=== PATIENT | male | born 1985 | race Caucasian/White ===

== ENCOUNTER 2017-05-21 18:37 | Emergency (ER) ==
[2017-05-21 18:43] VITALS: BP 136/86; TEMP 98.5; BMI 26.8
[2017-05-21] MEDS ORDERED: ZOFRAN 4 MG/2 ML IVP STA (19:15)
[2017-05-21] MEDS ORDERED: SODIUM CHLORIDE 1,000 ML IV STA (19:15)
[2017-05-21 19:26] LABS: BILIRUBIN,URINE 1+ (NEGATIVE); KETONES,URINE Negative (NEGATIVE); LEUKOCYTE ESTERASE ,URINE Negative (NEGATIVE); NITRITE,URINE Negative (NEGATIVE); PROTEIN,URINE Trace (NEGATIVE); URINE, BLOOD Negative (NEGATIVE)
[2017-05-21 19:28] LABS: BASOPHILS # (AUTO) 0.1 K/uL (0-0.2); BASOPHILS % (AUTO) 0.6 % (0.0-3.0); EOSINOPHILS # (AUTO) 0.1 K/ul (0.0-0.7); EOSINOPHILS % (AUTO) 1.5 % (0.0-7.0); HEMATOCRIT 43.2 % (42.0-52.0); HEMOGLOBIN 16.1 g/dl (14.0-18.0); IMMATURE GRANULOCYTE % (AUTO) 0.1 % (0.0-5.0); LYMPHOCYTES # (AUTO) 3.3 K/uL (0.60-3.4); LYMPHOCYTES % (AUTO) 36.4 (10.0-50.0); MEAN CORPUSCULAR HEMOGLOBIN 30.7 pg (27.0-31.0); MEAN CORPUSCULAR HGB CONC 37.3 (31.8-35.4); MEAN CORPUSCULAR VOLUME 82.4 fl (80.0-94.0); MONOCYTES # (AUTO) 0.8 K/uL (0.4-2.0); MONOCYTES % (AUTO) 8.8 (0-10); NEUTROPHILS # (AUTO) 4.7 K/ul (2.0-6.9); NEUTROPHILS % (AUTO) 52.6; PLATELET COUNT 270 10^3/uL (140-440); RED BLOOD COUNT 5.24 10^6/ul (4.70-6.10); WHITE BLOOD COUNT 8.96 K/ul (4.2-10.2)
[2017-05-21 19:34] LABS: ADD URINE MICROSCOPIC YES; BACTERIA,URINE TRACE (NOT PRESENT)
[2017-05-21 19:38] LABS: FLU INTERNAL QC INTERNAL QC VALID; RAPID FLU A NEGATIVE (NEGATIVE); RAPID FLU B NEGATIVE (NEGATIVE)
--- NOTE | 2017-05-21 19:43 | ED.PDOC ---
General ED Provider: Dr. STEPHANIE ATKINS Chief Complaint: Nausea/Vomiting Stated Complaint: Patient is a 31 year old male who comes to the Er with onset dry heaves on 5 days ago with decreased appetite, chills and today Diarrhea x 4 Denies any Abdominal pain. Time Seen by Physician: 19:05 Mode of Arrival: Walk-In Information Source: Patient Exam Limitations: No limitations Primary Care Provider: CRUZ KRISHNA Nursing and Triage Documentation Reviewed and Agree: Yes GI Complaint Exam - Vomiting/Diarrhea Complaint/Exam Onset/Duration: 5 days Symptoms Are: Still present Episodes of Vomiting over last 24 Hours: 1 (mostly dry heaving ) Episodes of Diarrhea Over Last 24 Hours: 4 Initial Severity: Mild Current Severity: Moderate Character of Vomiting: Reports: Non-bilious Character of Diarrhea: Reports: Watery Aggravating: Reports: Food Alleviating: Reports: None Associated Signs and Symptoms: Reports: Cramping. Denies: Dizziness, Light- headedness, Melena, Hematemesis, Fever, Abdominal pain Non-GI Risk Factors: Reports: None Surgical Obstruction Risk Factors: Reports: None Related Surgical History: Reports: None Abdominal Findings: Present: None Differential Diagnoses: Bowel Obstruction, Gastritis, Viral Gastroenteritis, Pancreatitis, UTI Review of Systems - Review Of Systems Constitutional: Reports: Fever, Malaise, Loss of appetite Eyes: Reports: No symptoms Ears, Nose, Mouth, Throat: Reports: No symptoms Respiratory: Reports: Cough (non productive ) Cardiac: Reports: No symptoms GI: Reports: Diarrhea (4 x today ), Nausea, Vomiting : Reports: No symptoms Musculoskeletal: Reports: No symptoms Skin: Reports: No symptoms Neurological: Reports: Anxiety Endocrine: Reports: No symptoms Hematologic/Lymphatic: Reports: No symptoms All Other Systems: Reviewed and Negative Past Medical History - Past Medical History Previously Healthy: Yes Endocrine: Reports: None Cardiovascular: Reports: None Respiratory: Reports: None Hematological: Reports: None Gastrointestinal: Reports: None Genitourinary: Reports: None Neuro/Psych: Reports: Anxiety, Depression, Bipolar Disorder Musculoskeletal: Reports: None Cancer: Reports: None - Surgical History General Surgical History: Reports: Tonsillectomy - Family History Family History: Reports: Unknown - Social History Smoking Status: Former smoker, Vaping Hx Substance Use: Yes (Marijuana) Alcohol Screening: None Lives: Alone Physical Exam - Physical Exam Appearance: Ill-appearing Ill-appearing: Moderate Pain Distress: Moderate Eyes: NILSON, EOMI, Conjunctiva clear ENT: Nose normal, Oropharynx normal Neck: Supple Respiratory: Airway patent, Breath sounds clear, Breath sounds equal, Respirations nonlabored Cardiovascular: RRR, Pulses normal, No rub, No murmur GI/: Soft, Nontender, No masses Musculoskeletal: Normal strength, ROM intact, No edema, No calf tenderness Skin: Warm, Dry, Normal color Neurological: Sensation intact, Motor intact Psychiatric: Anxious Critical Care Note - Critical Care Note Total Time (mins): 0 Course - Course Hematology/Chemistry: 05/21/17 19:20 05/21/17 19:20 Orders, Labs, Meds: Lab Review 05/21/17 05/21/17 05/21/17 18:50 19:16 19:20 WBC 8.96 RBC 5.24 Hgb 16.1 Hct 43.2 MCV 82.4 MCH 30.7 MCHC 37.3 H RDW Coeff of [place] 11.9 Plt Count 270 Immature Gran % (Auto) 0.1 Neut % (Auto) 52.6 Lymph % (Auto) 36.4 [place] % (Auto) 8.8 Eos % (Auto) 1.5 Baso % (Auto) 0.6 Immature Gran # (Auto) 0.0 Neut # 4.7 Lymph # 3.3 [place] # 0.8 Eos # 0.1 Baso # 0.1 Sodium 140 Potassium 3.3 L Chloride 103 Carbon Dioxide 25 Anion Gap 15.3 BUN 17 Creatinine 0.97 Estimated GFR (MDRD) 90.00 BUN/Creatinine Ratio 17.52 Glucose 93 Calcium 9.6 Total Bilirubin 2.76 H AST 41 H ALT 79 H Alkaline Phosphatase 84 Total Protein 8.0 Albumin 4.1 Globulin 3.9 Albumin/Globulin Ratio 1.05 Amylase 44 Lipase 24 Urine Color Yellow Urine Clarity Clear Urine pH 6.0 Ur Specific [place] >=1.030 Urine Protein Trace Urine Glucose (UA) Negative Urine Ketones Negative Urine Blood Negative Urine Nitrite Negative Urine Bilirubin 1+ Urine Urobilinogen 4.0 Ur Leukocyte Esterase Negative Urine Microscopic RBC 0-2 Ur Squamous Epith Cells Not present Urine Bacteria Trace Urine Mucus 1+ Influenza A (Rapid) Negative Influenza B (Rapid) Negative Orders Category Date Time Status ED IV/MEDIPORT/POWERPORT .ONCE EMERGENCY 05/21/17 19:15 Active AMYLASE Stat LAB 05/21/17 19:20 Completed CBC W/ AUTO DIFF Stat LAB 05/21/17 19:20 Completed COMPREHENSIVE METABOLIC PANEL Stat LAB 05/21/17 19:20 Completed LIPASE Stat LAB 05/21/17 19:20 Completed MOLECULAR GROUP A STREP Stat LAB 05/21/17 19:16 Completed RAPID FLU A/B Stat LAB 05/21/17 19:16 Completed STREP SCREEN Stat LAB 05/21/17 19:16 Completed URINALYSIS C & S IF INDICATED Stat LAB 05/21/17 18:50 Completed 0.9 % Sodium Chloride [Saline Flush] MEDS 05/21/17 19:15 Discontinued 1 syr IVF PRN PRN Ondansetron HCl/Pf [Zofran 4 mg/2 ml] MEDS 05/21/17 19:15 Discontinued 4 mg IVP ONCE STA Sodium Chloride 0.9% [Sodium Chloride] 1,000 ml MEDS 05/21/17 19:15 Discontinued IV BOLUS CHEST, 2 VIEWS PA & LAT Stat RADS 05/21/17 19:16 Completed Medications Discontinued Medications Generic Name Dose Route Start Last Admin Trade Name Freq PRN Reason Stop Dose Admin Sodium Chloride 1,000 mls @ 1,000 mls/hr 05/21/17 19:15 05/21/17 19:28 Sodium Chloride IV 05/21/17 20:14 1,000 mls/hr BOLUS STA Administration Ondansetron HCl 4 mg 05/21/17 19:15 05/21/17 19:29 Zofran 4 Mg/2 Ml IVP 05/21/17 19:16 4 mg ONCE STA Administration Sodium Chloride 1 syr 05/21/17 19:15 05/21/17 19:31 Saline Flush IVF 1 syr PRN PRN Administration To flush IV Vital Signs: Temp Pulse Resp BP Pulse Ox 05/21/17 18:37 98.5 F 78 16 136/86 98 Departure - Departure Time of Disposition: 20:40 Disposition: HOME SELF-CARE Discharge Problem: Viral gastroenteritis Instructions: Gastroenteritis (ED), Dehydration (ED), Acute Nausea and Vomiting (ED) Condition: Fair Pt referred to PMD for follow-up: Yes Additional Instructions: Push fluids Take medications for nausea as needed. Prescriptions: Promethazine HCl [Phenergan Tab] 25 mg PO Q6H PRN #15 tablet PRN Reason: Nausea / Vomiting Allergies/Adverse Reactions: Allergies trazadone Allergy (Severe, Uncoded 05/21/17 18:44) rash and didn't help Home Medications: Ambulatory Orders Aripiprazole [Abilify] 60 mg PO DAILY 05/21/17 Diazepam [Valium] 10 mg PO DIRECTED PRN 05/21/17 Promethazine HCl [Phenergan Tab] 25 mg PO Q6H PRN #15 tablet 05/21/17 Quetiapine Fumarate [Seroquel] 200 mg PO BEDTIME 05/21/17 Disposition Discussed With: Patient, Family
[2017-05-21 19:51] LABS: ALBUMIN 4.1 g/dL (3.4-5.0); ALBUMIN/GLOBULIN RATIO 1.05; ANION GAP 15.3; BILIRUBIN,TOTAL 2.76 mg/dL (0.00-1.20); BUN/CREATININE RATIO 17.52; CALCIUM 9.6 mg/dL (8.2-10.2); CREATININE 0.97 mg/dL (0.60-1.10); POTASSIUM 3.3 mmol/L (3.5-5.1)
--- NOTE | 2017-05-22 03:40 | DI ---
EXAM: Chest, two views, 05/21/2017 HISTORY: Cough COMPARISON: 03/02/2014 FINDINGS / IMPRESSION: Cardiomediastinal countours appear stable. There is no focal pulmonary cons olidation. No pleural effusion or pneumothorax. No acute cardiopulmonary process.
== END 2017-05-21 20:42 | disposition home or self-care (01) ==
LOC: ED 18:37
DX: A08.4 Viral intestinal infection, unspecified (principal)
CPT/HCPCS: 36415; 80053; 81001; 82150; 83690; 85025; 87651; 87804; 87880; 96361; 96374; 99283

== ENCOUNTER 2017-10-28 14:21 | Emergency (ER) ==
[2017-10-28 14:34] VITALS: BP 124/77; TEMP 100.8; BMI 28.4
[2017-10-28] MEDS ORDERED: MOTRIN SUSP PO STA (14:44)
[2017-10-28] MEDS ORDERED: SODIUM CHLORIDE 1,000 ML IV STA (15:36)
[2017-10-28] MEDS ORDERED: ZOFRAN 4 MG/2 ML IVP STA (15:36)
[2017-10-28] MEDS ORDERED: DILAUDID 1 MG/ML SYRINGE IVP STA (15:36)
--- NOTE | 2017-10-28 16:28 | ED.PDOC ---
General ED Provider: Dr. GRACIE LARSEN-ER Chief Complaint: Respiratory Complaint Stated Complaint: hes had cough, body aches and fever Time Seen by Physician: 16:26 Mode of Arrival: Walk-In Information Source: Patient Exam Limitations: No limitations Primary Care Provider: CRUZ KRISHNA Nursing and Triage Documentation Reviewed and Agree: Yes Reviewed sepsis parameters & appropriate labs ordered?: Yes System Inflammatory Response Syndrome: Not Applicable Sepsis Protocol: For patient's 13 years and over: Temp is 96.8 and below OR 101 and greater Pulse >90 BPM Resp >20/minute Acutely Altered Mental Status Are patient's symptoms suggestive of a new infection, such as: -Pneumonia -Skin, Soft Tissue -Endocarditis -UTI -Bone, Joint Infection -Implantable Device -Acute Abdominal Infection -Wound Infection -Meningitis -Blood Stream Catheter Infection -Unknown Respiratory Complaint Exam - Respiratory Complaint/Exam Onset/Duration: 24hrs Symptoms Are: Still present Timing: Constant Initial Severity: Mild Current Severity: Mild Location: Chest Character: Reports: Non-productive cough Aggravating: Reports: URI Alleviating: Reports: None Associated Signs and Symptoms: Reports: Fever, Chills, URI, Nasal congestion, Sore throat, Decreased oral intake. Denies: Rapid breathing, Dyspnea, Chest pain, Pleuritic chest pain, Wheezing, Hemoptysis, Dizziness, Calf pain, Calf swelling, Edema, Hoarseness, Sinus discomfort, Vomiting, Weight loss, Increased thirst, Increased appetite, Increased urination Related History: Denies: Similar episode History of Healthcare-Acquired Pneumonia: No Home Oxygen Use: No Recent Stress Test: No Recent Echo/LV Function: No Current Antibiotic Use: No Current Asthma Medication Use: No Respiratory Distress: None Inadequate Respiratory Effort: No Dysphagia Present: No Stridor Present: No JVD Present: No Accessory Muscle Use: No Retractions: Not Present Diminished Breath Sounds: No Sinus Tenderness: None Grunting Respirations: No [place]ul Respirations: No Differential Diagnoses: URI, Influenza Review of Systems - Review Of Systems Constitutional: Reports: Chills, Fever, Weakness Eyes: Reports: No symptoms Ears, Nose, Mouth, Throat: Reports: Nose discharge Respiratory: Reports: Cough Cardiac: Reports: No symptoms GI: Reports: No symptoms : Reports: No symptoms Musculoskeletal: Reports: No symptoms Skin: Reports: No symptoms Neurological: Reports: No symptoms Endocrine: Reports: No symptoms Hematologic/Lymphatic: Reports: No symptoms All Other Systems: Reviewed and Negative Past Medical History - Past Medical History Previously Healthy: Yes Endocrine: Reports: None Cardiovascular: Reports: None Respiratory: Reports: None Hematological: Reports: None Gastrointestinal: Reports: None Genitourinary: Reports: None Neuro/Psych: Reports: Anxiety, Depression, Bipolar Disorder Musculoskeletal: Reports: None Cancer: Reports: None - Surgical History General Surgical History: Reports: Tonsillectomy - Family History Family History: Reports: Unknown - Social History Smoking Status: Former smoker, Vaping Hx Substance Use: Yes (Marijuana) Alcohol Screening: None Lives: With family Physical Exam - Physical Exam Appearance: Ill-appearing Ill-appearing: Mild Eyes: NILSON, EOMI, Conjunctiva clear ENT: Ears normal, Nose normal, Oropharynx normal Neck: Supple Respiratory: Airway patent, Breath sounds clear, Breath sounds equal, Respirations nonlabored Cardiovascular: RRR, Pulses normal, No rub, No murmur GI/: Soft, Nontender, No masses, Bowel sounds normal, No Organomegaly Musculoskeletal: Normal strength, ROM intact, No edema, No calf tenderness Skin: Warm, Dry, Normal color Neurological: Sensation intact, Motor intact, Reflexes intact, Cranial nerves intact, Alert, Oriented Psychiatric: Affect appropriate, Mood appropriate Interpretation - Radiology Interpretation Radiology Interpretation By: ED Physician Radiology Results: Negative Exam Interpreted: CXR Re-Evaluation - Re-Evaluation Time of Re-Evaluation: 16:29 Status: Improved Vital Signs Stable: Yes Pain Level: 2 Appearance: NAD Lungs: Clear Skin: Warm and Dry Neuro: Alert and Oriented X3 CV: RRR Critical Care Note - Critical Care Note Total Time (mins): 0 Course - Course Hematology/Chemistry: 10/28/17 14:55 10/28/17 14:55 Orders, Labs, Meds: Lab Review 10/28/17 10/28/17 10/28/17 14:30 14:55 14:55 WBC 7.09 RBC 4.81 Hgb 14.7 Hct 40.9 L MCV 85.0 MCH 30.6 MCHC 35.9 H RDW Coeff of [place] 12.1 Plt Count 172 Immature Gran % (Auto) 0.1 Neut % (Auto) 83.4 Lymph % (Auto) 6.1 [place] % (Auto) 9.3 Eos % (Auto) 0.7 Baso % (Auto) 0.4 Immature Gran # (Auto) 0.0 Neut # 5.9 Lymph # 0.4 [place] # 0.7 Eos # 0.1 Baso # 0.0 Sodium 139 Potassium 3.7 Chloride 105 Carbon Dioxide 24 Anion Gap 13.7 BUN 14 Creatinine 1.03 Estimated GFR (MDRD) 84.00 BUN/Creatinine Ratio 13.59 Glucose 105 H Calcium 9.3 Total Bilirubin 1.5 H AST 25 ALT 26 Alkaline Phosphatase 85 Total Protein 7.6 Albumin 4.1 Globulin 3.5 Albumin/Globulin Ratio 1.17 Influenza A (Rapid) Positive by naat H Influenza B (Rapid) Negative by naat Orders Category Date Time Status ED IV/MEDIPORT/POWERPORT .ONCE EMERGENCY 10/28/17 15:36 Active BLOOD CULTURE (ED ONLY) Stat LAB 10/28/17 14:55 Received CBC W/ AUTO DIFF Stat LAB 10/28/17 14:55 Completed COMPREHENSIVE METABOLIC PANEL Stat LAB 10/28/17 14:55 Completed MOLECULAR FLU A/B Stat LAB 10/28/17 14:30 Completed MOLECULAR GROUP A STREP Stat LAB 10/28/17 14:30 Completed 0.9 % Sodium Chloride [Saline Flush] MEDS 10/28/17 15:36 Ordered 1 syr IVF PRN PRN Hydromorphone HCl [Dilaudid 1 mg/ml Syringe] MEDS 10/28/17 15:36 Discontinued 1 mg IVP ONCE STA Ibuprofen Susp [Motrin Susp] MEDS 10/28/17 14:44 Discontinued 800 mg PO ONCE STA Ondansetron HCl/Pf [Zofran 4 mg/2 ml] MEDS 10/28/17 15:36 Discontinued 4 mg IVP ONCE STA Sodium Chloride 0.9% [Sodium Chloride] 1,000 ml MEDS 10/28/17 15:36 Active IV BOLUS CXR [CHEST, 2 VIEWS PA & LAT] Stat RADS 10/28/17 14:44 Taken Medications Generic Name Dose Route Start Last Admin Trade Name Freq PRN Reason Stop Dose Admin Sodium Chloride 1,000 mls @ 1,000 mls/hr 10/28/17 15:36 10/28/17 15:51 Sodium Chloride IV 10/28/17 16:35 1,000 mls/hr BOLUS STA Administration Sodium Chloride 1 syr 10/28/17 15:36 Saline Flush IVF PRN PRN To flush IV Discontinued Medications Generic Name Dose Route Start Last Admin Trade Name Lela PRN Reason Stop Dose Admin Hydromorphone HCl 1 mg 10/28/17 15:36 10/28/17 15:51 Dilaudid 1 Mg/Ml Syringe IVP 10/28/17 15:37 1 mg ONCE STA Administration Ibuprofen 800 mg 10/28/17 14:44 10/28/17 14:57 Motrin Susp PO 10/28/17 14:45 800 mg ONCE STA Administration Ondansetron HCl 4 mg 10/28/17 15:36 10/28/17 15:51 Zofran 4 Mg/2 Ml IVP 10/28/17 15:37 4 mg ONCE STA Administration Vital Signs: Temp Pulse Resp BP Pulse Ox 10/28/17 14:21 100.8 F H 95 H 20 124/77 98 Departure - Departure Time of Disposition: 16:29 Disposition: HOME SELF-CARE Discharge Problem: Influenza A Instructions: Influenza (ED) Condition: Good Pt referred to PMD for follow-up: Yes Additional Instructions: tamiflu 75mg bid x 5days--rest..fluids=--tylenol or motrin for pain---recheck in 72hrs or return sooner if symptoms worsen Allergies/Adverse Reactions: Allergies trazadone Allergy (Severe, Uncoded 10/28/17 14:28) rash and didn't help Home Medications: Ambulatory Orders Aripiprazole [Abilify] 60 mg PO DAILY 05/21/17 Diazepam [Valium] 10 mg PO DIRECTED PRN 05/21/17 Promethazine HCl [Phenergan Tab] 25 mg PO Q6H PRN #15 tablet 05/21/17 Quetiapine Fumarate [Seroquel] 200 mg PO BEDTIME 05/21/17 Disposition Discussed With: Patient
--- NOTE | 2017-10-29 13:23 | DI ---
EXAM: Two-view chest. HISTORY: Cough and fever. COMPARISON: 05/21/2017 FINDINGS: PA and lateral views of the chest. The lungs are clear without consolidation or effusion. The heart size and pulmonary vasculature is normal. There is no pneumothorax. The osseous structu res are normal for age. The aorta is unremarkable. IMPRESSION: No acute pulmonary disease.
== END 2017-10-28 16:42 | disposition home or self-care (01) ==
LOC: ED 14:21
DX: J09.X2 Influenza due to identified novel influenza A virus with other respiratory manifestations (principal)
CPT/HCPCS: 36415; 80053; 85025; 87040; 87502; 87651; 96361; 96374; 96375; 99284

== ENCOUNTER 2018-05-27 11:17 | Emergency (ER) ==
[2018-05-27 11:20] VITALS: BP 137/84; TEMP 97.4; BMI 25.8
--- NOTE | 2018-05-27 11:39 | ED.PDOC ---
General ED Provider: Dr. ARIA RUTHERFORD Chief Complaint: Headache Stated Complaint: headache Time Seen by Physician: 11:20 (seen with ilana at all times ) Mode of Arrival: Walk-In Information Source: Patient Exam Limitations: No limitations Primary Care Provider: CRUZ KRISHNA Nursing and Triage Documentation Reviewed and Agree: Yes Does patient meet sepsis criteria?: Yes If yes, has appropriate treatment been initiated?: No System Inflammatory Response Syndrome: Not Applicable Sepsis Protocol: For patient's 13 years and over: Temp is 96.8 and below OR 101 and greater Pulse >90 BPM Resp >20/minute Acutely Altered Mental Status Are patient's symptoms suggestive of a new infection, such as: -Pneumonia -Skin, Soft Tissue -Endocarditis -UTI -Bone, Joint Infection -Implantable Device -Acute Abdominal Infection -Wound Infection -Meningitis -Blood Stream Catheter Infection -Unknown Neurological Complaint Exam - Headache Complaint/Exam Onset: Gradual Duration: today Symptoms Are: Still present Timing: Constant Episodes Lasting: Hours Worst Headache Ever: No Initial Severity: Moderate Current Severity: Moderate Location: Diffuse Character: Reports: Typical headache, Migraine Aggravating: Reports: None Alleviating: Reports: None Associated Signs and Symptoms: Denies: Dizziness, Seizure, Nausea, Vomiting, Sinus pressure, Fever, Neck pain, Neck stiffness, Decreased LOC, Visual changes Related History: Reports: Similar episode Related Surgical History: Reports: None SAH Risk Factors: Reports: None Meningitis Risk Factors: Reports: None SDH Risk Factors: Reports: Male Temporal Arteritis Risk Factors: Reports: None Normal Head CT Within Last 12 Months: Yes Fundoscopic Exam: Present: Normal Findings Papilledema Present: No Temporal Artery Tenderness: Present: None Sinus Tenderness: Present: None TMJ Tenderness: Present: None Glascow Coma Scale (see protocol): 15 Meningeal Signs Positive: No ROM Limited In: No Limitiations Focal Weakness: Present: None Focal Sensory Loss: Present: None Gait: Normal Babinski Sign: Negative Right, Negative Left Differential Diagnoses: Migraine Review of Systems - Review Of Systems Constitutional: Reports: No symptoms Eyes: Reports: No symptoms Ears, Nose, Mouth, Throat: Reports: No symptoms Respiratory: Reports: No symptoms Cardiac: Reports: No symptoms GI: Reports: No symptoms : Reports: No symptoms Musculoskeletal: Reports: No symptoms Skin: Reports: No symptoms Neurological: Reports: Headache Endocrine: Reports: No symptoms Hematologic/Lymphatic: Reports: No symptoms All Other Systems: Reviewed and Negative Past Medical History - Past Medical History Previously Healthy: Yes Endocrine: Reports: None Cardiovascular: Reports: None Respiratory: Reports: None Hematological: Reports: None Gastrointestinal: Reports: None Genitourinary: Reports: None Neuro/Psych: Reports: Anxiety, Depression, Bipolar Disorder Musculoskeletal: Reports: None Cancer: Reports: None - Surgical History General Surgical History: Reports: Tonsillectomy - Family History Family History: Reports: Unknown - Social History Smoking Status: Former smoker, Vaping Hx Substance Use: Yes (Marijuana) Alcohol Screening: None Physical Exam - Physical Exam Appearance: Well-appearing, No pain distress, Well-nourished Eyes: [place]ILSON, EOMI, Conjunctiva clear ENT: Ears normal, Nose normal, Oropharynx normal Respiratory: Airway patent, Breath sounds clear, Breath sounds equal, Respirations nonlabored Cardiovascular: RRR, Pulses normal, No rub, No murmur GI/: Soft, Nontender, No masses, Bowel sounds normal, No Organomegaly Musculoskeletal: Normal strength, ROM intact, No edema, No calf tenderness Skin: Warm, Dry, Normal color Neurological: Sensation intact, Motor intact, Reflexes intact, Cranial nerves intact, Alert, Oriented Psychiatric: Affect appropriate, Mood appropriate Critical Care Note - Critical Care Note Total Time (mins): 0 Course - Course Vital Signs: Temp Pulse Resp BP Pulse Ox 05/27/18 11:18 97.4 F L 83 16 137/84 99 Departure - Departure Time of Disposition: 11:39 (nurse was present at all time no cyst noted on the old study ) Disposition: HOME SELF-CARE Discharge Problem: Headache Instructions: Acute Headache (ED) Condition: Good Pt referred to PMD for follow-up: Yes IPMP verified?: No Additional Instructions: Please call your Family Physician as soon as possible to schedule a follow-up appointment. Prescriptions: Hydrocodone/Acetaminophen [[place] 10-325 Tablet] 1 each PO Q8HR #4 tablet Allergies/Adverse Reactions: Allergies trazadone Allergy (Severe, Uncoded 05/27/18 11:20) rash and didn't help Home Medications: Ambulatory Orders Aripiprazole [Abilify] 60 mg PO DAILY 05/21/17 Diazepam [Valium] 10 mg PO DIRECTED PRN 05/21/17 Promethazine HCl [Phenergan Tab] 25 mg PO Q6H PRN #15 tablet 05/21/17 Quetiapine Fumarate [Seroquel] 200 mg PO BEDTIME 05/21/17 Hydrocodone/Acetaminophen [[place] 10-325 Tablet] 1 each PO Q8HR #4 tablet
== END 2018-05-27 11:47 | disposition home or self-care (01) ==
LOC: ED 11:17
DX: R51 Headache (principal)
CPT/HCPCS: 99283

== ENCOUNTER 2018-11-29 11:54 | Emergency (ER) ==
[2018-11-29 11:58] VITALS: BP 138/80; TEMP 97.9; BMI 24.2
== END 2018-11-29 13:09 | disposition left against medical advice (07) ==
LOC: ED 11:54
DX: M54.9 Dorsalgia, unspecified (principal); W01.0XXA Fall on same level from slipping, tripping and stumbling without subsequent striking against object, initial encounter